=== PATIENT | male | born 1985 | race African-American/Black ===

== ENCOUNTER → 2017-04-11 | Outpatient (CLI) | payer OTHER ==
[2014-11-18 10:30] VITALS: BP 119/70
[~2017-04-11] MED LIST: IBUP-1027 PO
--- NOTE | 2017-04-11 16:29 | KCIC ---
Ultrasound renal complete bilateral 04/11/2017 CLINICAL INDICATION: Frequency of micturition COMPARISON: None. FINDINGS: Visualized upper IVC unremarkable. Aorta is obscured by overlying bowel gas. Right kidney is present measuring 12.0 cm in length without collecting system dilatation, abnormal perinephric fluid collection or suspicious contour deforming renal mass. Partially distended urinary bladder are unremarkable. Left kidney is present measuring 11.9 cm in length without collecting system dilatation, abnormal perinephric fluid collection or suspicious contour deforming renal mass. IMPRESSION: Both kidneys present without hydronephrosis. Electronically signed by: Alexsander Padron MD (04/11/2017 4:26 PM) [id number]
== END | disposition home or self-care (01) ==
LOC: KCIC US 15:07
PROVIDERS: ATTEND Urology
DX: R35.0 Frequency of micturition (principal); R33.8 Other retention of urine
CPT/HCPCS: 76770

== ENCOUNTER 2017-12-30 18:13 | Emergency (ER) | payer OTHER ==
[2017-12-30] MEDS: IBUPROFEN 600 MG TABLET. PO (19:07)
== END 2017-12-30 19:58 | disposition home or self-care (01) ==
LOC: ER 18:13
DX: S29.012A Strain of muscle and tendon of back wall of thorax, initial encounter (principal); S39.012A Strain of muscle, fascia and tendon of lower back, initial encounter; V43.52XA Car driver injured in collision with other type car in traffic accident, initial encounter; Y93.89 Activity, other specified; Y92.488 Other paved roadways as the place of occurrence of the external cause; Y99.8 Other external cause status
CPT/HCPCS: 72072; 72100; 99284